=== PATIENT | female | born 1945 | race Caucasian/White ===

== ENCOUNTER 2016-12-06 12:00 | Observation (INO) | payer OTHER ==
[~2016-12-06] VITALS: Ht 157.5 cm; Wt 97.8 kg
[2016-12-06 12:42] LABS: MCH 27.5 PG (29.0-34.0); MEAN PLAT.VOLUME 9.9 uM^3 (9.5-12.4); PLATELET COUNT 253 K/uL (156-360); RBC DIS.WIDTH-CV 13.9 % (11.8-14.6); RBC DIS.WIDTH-SD 43.1 % (39-53); RED BLOOD COUNT 4.65 M/uL (3.80-5.20)
[2016-12-06 12:57] LABS: CHLORIDE 108 mEq/L (99-109); MAGNESIUM 2.4 mg/dL (1.3-2.7); POTASSIUM 4.2 mEq/L (3.7-5.4); SODIUM 140 mEq/L (136-147)
[2016-12-06 12:59] LABS: GLUCOSE 106 mg/dL (70-99)
[2016-12-06 13:00] LABS: ANION GAP 8 MEQ/L (2-14)
[2016-12-06 13:01] LABS: TOTAL BILIRUBIN 0.6 mg/dL (0.0-1.0)
[2016-12-06 13:03] LABS: ALKALINE PHOSPHATASE 84 IU/L (3-129); GFR ESTIMATE (CALCULATED) 36 mL/min/; TROP-I INTERPRETATION NEGATIVE; TROPONIN-I < 0.01 ng/mL (0.0-0.30)
[2016-12-06 13:04] LABS: UREA NITROGEN (BUN) 24 mg/dL (9-23)
[2016-12-06 13:06] LABS: CREATINE KINASE 95 IU/L (1-294); TOTAL CK 95 IU/L (1-294)
[2016-12-06 13:12] LABS: CK-MB 1.4 ng/mL (0.0-4.9)
[2016-12-06] MEDS ORDERED: CORDARONE200 MG PO (15:31)
[2016-12-06] MEDS ORDERED: PLAVIX75 MG PO (15:32)
[2016-12-06] MEDS ORDERED: TOPROL XL25 MG PO (15:32)
[2016-12-06] MEDS ORDERED: SYNTHROID88 MCG PO (15:32)
[2016-12-06] MEDS ORDERED: TRAVATAN Z5 ML BOTH EYES (15:33)
[2016-12-06] MEDS ORDERED: NITROSTAT0.4 MG SL (15:33)
[2016-12-06] MEDS ORDERED: LO-DOSE ASPIRIN81 M1 PO (15:33)
[2016-12-06] MEDS ORDERED: LASIX20 MG PO (15:34)
[2016-12-06 18:17] VITALS: BP 143/87
[2016-12-06 18:58] LABS: TROP-I INTERPRETATION NEGATIVE; TROPONIN-I < 0.01 ng/mL (0.0-0.30)
[2016-12-07 01:16] LABS: TROP-I INTERPRETATION NEGATIVE; TROPONIN-I < 0.01 ng/mL (0.0-0.30)
[2016-12-07 05:00] VITALS: BP 156/70
[2016-12-07 07:38] VITALS: BP 153/67
[2016-12-07] MEDS ORDERED: KEPPRA500 MG PO (09:44)
== END 2016-12-07 12:13 | disposition home or self-care (01) ==
LOC: EME 12:00 → EDOF 15:06 → ENRESERV 15:13 → 5WEST 16:59
PROVIDERS: Emergency Medicine; Internal Medicine
DX: R55 Syncope and collapse (principal); I25.2 Old myocardial infarction; Z95.810 Presence of automatic (implantable) cardiac defibrillator; I25.10 Atherosclerotic heart disease of native coronary artery without angina pectoris; Z95.5 Presence of coronary angioplasty implant and graft; I12.9 Hypertensive chronic kidney disease with stage 1 through stage 4 chronic kidney disease, or unspecified chronic kidney disease; N18.3 Chronic kidney disease, stage 3 (moderate); Z86.73 Personal history of transient ischemic attack (TIA), and cerebral infarction without residual deficits; E03.9 Hypothyroidism, unspecified; E78.5 Hyperlipidemia, unspecified; G40.209 Localization-related (focal) (partial) symptomatic epilepsy and epileptic syndromes with complex partial seizures, not intractable, without status epilepticus; R42 Dizziness and giddiness; R25.1 Tremor, unspecified; Z79.82 Long term (current) use of aspirin
CPT/HCPCS: 70450; 71010; 80053; 82550; 82553; 83735; 84484; 85027; 93005; 93880; 99281; 99285; G0378; J1650; J7030

== ENCOUNTER → 2017-09-17 | Outpatient (CLI) | payer OTHER ==
[~2017-09-17] MED LIST: CORDARONE200 MG PO; KEPPRA500 MG PO; LASIX20 MG PO; LO-DOSE ASPIRIN81 M1 PO; NITROSTAT0.4 MG SL; PLAVIX75 MG PO; SYNTHROID88 MCG PO; TOPROL XL25 MG PO; TRAVATAN Z5 ML BOTH EYES
== END | disposition home or self-care (01) ==
LOC: NUC 08:41
DX: G60.3 Idiopathic progressive neuropathy (principal)
CPT/HCPCS: 78607; A9584